=== PATIENT | male | born 1960 | race American Indian/Alaskan Native ===

== ENCOUNTER 2017-02-11 15:25 | Emergency (ER) | payer BC ==
[2017-02-11 15:47] VITALS: BP 144/84
--- NOTE | 2017-02-11 17:43 | Emergency Department Report ---
- General Chief Complaint: Upper Respiratory Infection Stated Complaint: BODY SORE, FEVER, COUGH Time Seen by Provider: 02/11/17 17:30 Source: patient Mode of arrival: Ambulatory Limitations: No Limitations - History of Present Illness MD Complaint: fever, cough, nasal congestion -: days(s) (4 days) Severity: mild Quality: aching Improves With: OTC cold medicine, cough suppressant Context: sick contacts Associated Symptoms: fever, chills, myalgias, headache, nasal congestion, cough , nausea. denies: stiff neck, chest pain - Related Data Previous Rx's Medication Instructions Recorded Last Taken Type ALBUTEROL Inhaler [ProAir HFA 2 puff IH QID PRN #1 inhalation 02/11/17 Unknown Rx Inhaler] Azithromycin [Zithromax TAB] 500 mg PO QDAY #3 tablet 02/11/17 Unknown Rx Prednisone [predniSONE 10 mg 10 mg PO .TAPER #1 tab.ds.pk 02/11/17 Unknown Rx (6-Day Pack, 21 Tabs)] Promethazine [Phenergan TAB] 25 mg PO Q6HR PRN #20 tab 02/11/17 Unknown Rx Allergies Allergy/AdvReac Type Severity Reaction Status Date / Time No Known Allergies Allergy Unverified 02/11/17 15:47 ED Review of Systems ROS: Stated complaint: BODY SORE, FEVER, COUGH Other details as noted in HPI Constitutional: chills, fever Eyes: denies: eye pain, eye discharge, vision change ENT: denies: ear pain, throat pain Respiratory: cough, SOB with exertion Cardiovascular: denies: chest pain, palpitations, orthopnea, edema, syncope Gastrointestinal: nausea, vomiting. denies: abdominal pain, diarrhea, constipation Musculoskeletal: myalgia Skin: denies: rash Neurological: headache ED Past Medical Hx - Past Medical History Previous Medical History?: No - Surgical History Additional Surgical History: left knee at age 3,fx LLL-23y of age - Social History Smoking Status: Current Some Day Smoker Substance Use Type: Alcohol - Medications Home Medications: Home Medications Medication Instructions Recorded Confirmed Last Taken Type ALBUTEROL Inhaler [ProAir HFA 2 puff IH QID PRN #1 inhalation 02/11/17 Unknown Rx Inhaler] Azithromycin [Zithromax TAB] 500 mg PO QDAY #3 tablet 02/11/17 Unknown Rx Prednisone [predniSONE 10 mg 10 mg PO .TAPER #1 tab.ds.pk 02/11/17 Unknown Rx (6-Day Pack, 21 Tabs)] Promethazine [Phenergan TAB] 25 mg PO Q6HR PRN #20 tab 02/11/17 Unknown Rx ED Physical Exam - General Limitations: No Limitations General appearance: alert, in no apparent distress - Eye Eye exam: Present: PERRL, EOMI Pupils: Present: normal accommodation - ENT ENT exam: Present: normal exam, normal orophraynx, mucous membranes moist - Neck Neck exam: Present: normal inspection, full ROM. Absent: tenderness, meningismus, lymphadenopathy - Respiratory Respiratory exam: Present: normal lung sounds bilaterally. Absent: respiratory distress, wheezes, rales, rhonchi, stridor - Cardiovascular Cardiovascular Exam: Present: regular rate - GI/Abdominal GI/Abdominal exam: Present: soft. Absent: distended, tenderness, guarding, rebound, rigid - Neurological Exam Neurological exam: Present: alert, oriented X3, CN II-XII intact - Skin Skin exam: Present: warm, dry, intact ED Course Vital Signs 02/11/17 15:42 Temperature 99.2 F Pulse Rate 75 Respiratory 18 Rate Blood Pressure 144/84 Critical care attestation.: If time is entered above; I have spent that time in minutes in the direct care of this critically ill patient, excluding procedure time. ED Disposition Clinical Impression: Upper respiratory infection Disposition: DISCHARGED TO HOME OR SELFCARE Is pt being admited?: No Condition: Stable Prescriptions: ALBUTEROL Inhaler [ProAir HFA Inhaler] 2 puff IH QID PRN #1 inhalation PRN Reason: Shortness Of Breath Azithromycin [Zithromax TAB] 500 mg PO QDAY #3 tablet Prednisone [predniSONE 10 mg (6-Day Pack, 21 Tabs)] 10 mg PO .TAPER #1 tab.ds.pk Promethazine [Phenergan TAB] 25 mg PO Q6HR PRN #20 tab PRN Reason: Nausea Referrals: PRIMARY CARE,MD [Primary Care Provider] - 3-5 Days Forms: Work/School Release Form(ED)
== END 2017-02-11 19:03 | disposition home or self-care (01) ==
LOC: ED 15:25
DX: J06.9 Acute upper respiratory infection, unspecified (principal)
CPT/HCPCS: 87400; 99282